=== PATIENT | male | born 1980 | race African-American/Black ===

== ENCOUNTER 2020-11-15 09:42 | Outpatient (CLI) | payer OTHER, SELFPAY ==
--- NOTE | 2020-11-15 | EST_ITS ---
Patient Info Name: Ross Shankar Age: 40 years : 1980 Gender: Male Ht: 76 in Wt: 250 lbs BSA: 2.49 m2 Exam Date: 11/15/2020 10:02 AM Exam Location: [facility] Stress Patient Status: Outpatient Admit Date: 11/15/2020 Staff Ordering Physician: Anselmo, Annetta Martin NP Attending Provider: Anselmo, Annetta Martin NP Exercise Technologist: Jana Rivas RDCS Exercise Physician: Edson Mckinnon DO Exam Type: CA stress test treadmill Study Info Indications R07.9 - Chest pain, unspecified A treadmill exercise stress test was performed. Summary 1. 1. Negative Kevin exercise stress test for ischemic ST changes by ECG criteria. 2. 2. Good functional capacity, achieving 12 METs of workload. 3. 3. Baseline hypertension with hypertensive response to exercise. 4. 4. Appropriate HR response to exercise. 5. 5. Appropriate HR recovery at 1 minute post exercise. 6. 6. No imaging with stress testing. 7. 7. Patient informed of the above results. Protocol: Kevin Stress ECG Details Stage: REST Duration (min): 5 min : 51 sec Speed (mph): 0.0 Grade (%): 0 HR (bpm): 89 SBP (mmHg): 146 DBP (mmHg): 96 METS: --- Stage: REST Duration (min): 9 min : 28 sec Speed (mph): 0.0 Grade (%): 0 HR (bpm): 86 SBP (mmHg): 146 DBP (mmHg): 96 METS: --- Stage: STAGE 1 Duration (min): 1 min : 0 sec Speed (mph): 1.7 Grade (%): 10 HR (bpm): 107 SBP (mmHg): 146 DBP (mmHg): 96 METS: --- Stage: STAGE 1 Duration (min): 2 min : 0 sec Speed (mph): 1.7 Grade (%): 10 HR (bpm): 111 SBP (mmHg): 146 DBP (mmHg): 96 METS: --- Stage: STAGE 1 Duration (min): 3 min : 0 sec Speed (mph): 1.7 Grade (%): 10 HR (bpm): 110 SBP (mmHg): 169 DBP (mmHg): 89 METS: --- Stage: STAGE 2 Duration (min): 1 min : 0 sec Speed (mph): 2.5 Grade (%): 12 HR (bpm): 116 SBP (mmHg): 169 DBP (mmHg): 89 METS: --- Stage: STAGE 2 Duration (min): 2 min : 0 sec Speed (mph): 2.5 Grade (%): 12 HR (bpm): 119 SBP (mmHg): 170 DBP (mmHg): 86 METS: --- Stage: STAGE 2 Duration (min): 3 min : 0 sec Speed (mph): 2.5 Grade (%): 12 HR (bpm): 122 SBP (mmHg): 170 DBP (mmHg): 86 METS: --- Stage: STAGE 3 Duration (min): 1 min : 0 sec Speed (mph): 3.4 Grade (%): 14 HR (bpm): 133 SBP (mmHg): 179 DBP (mmHg): 88 METS: --- Stage: STAGE 3 Duration (min): 2 min : 0 sec Speed (mph): 3.4 Grade (%): 14 HR (bpm): 136 SBP (mmHg): 179 DBP (mmHg): 88 METS: --- Stage: STAGE 3 Duration (min): 3 min : 0 sec Speed (mph): 3.4 Grade (%): 14 HR (bpm): 142 SBP (mmHg): 200 DBP (mmHg): 88 METS: --- Stage: STAGE 4 Duration (min): 1 min : 0 sec Speed (mph): 4.2 Grade (%): 16 HR (bpm): 155 SBP (mmHg): 200 DBP (mmHg): 88 METS: ---
== END 2020-11-15 09:43 | disposition home or self-care (01) ==
PROVIDERS: PCP Family Medicine; Visit Provider Nurse Practitioner
DX: R07.89 Other chest pain (principal)
CPT/HCPCS: 93017

== ENCOUNTER 2021-11-18 22:49 | Inpatient (IN) | payer OTHER, SELFPAY ==
--- NOTE | ~2021-11-18 | CT_ITS ---
EXAMINATION: CT abdomen pelvis w con DATE: 11/19/2021 04:03 INDICATION: Left upper quadrant abdominal pain. TECHNIQUE: Computed tomography (CT) of the abdomen and pelvis was performed with 100 mL Omnipaque 350 intravenous contrast. Automated exposure control and iterative reconstruction technique were employe d. The dose-length product was 609.76 mGy-cm. COMPARISON: CT abdomen and pelvis 04/14/2019 FINDINGS: The visualized portions of the lung bases are clear without pneumonia or pleural effusion. There is bilateral gynecomastia. The heart size is normal. No pericardial effusion. The liver demonst rates diffuse steatosis. The gallbladder and spleen are normal. There is hypoattenuation in the head of the pancreas. The pancreatic duct is dilated in the tail of the pancreas. There is fat stranding a round the pancreas. The left adrenal gland is normal. There is a 1.9 cm mass in right adrenal gland m easuring soft tissue attenuation without change, likely an adenoma. There are cysts in the kidneys me asuring up to 5 mm on the right. There is diffuse bladder wall thickening. There are no dilated loops of bowel. The appendix is normal. There is mild peripancreatic lymphadenopathy, likely reactive. The re is no free intraperitoneal fluid. There is a chronic left L5 pars defect. There is mild chronic an terior wedging of multiple thoracic vertebral bodies. There is mild thoracolumbar spondylosis. IMPRESSION: 1. 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 2. Chronic diffuse bladder wall thickening, likely benign. 3. Mild peripancreatic lymphadenopathy, likely reactive. 4. Diffuse hepatic steatosis. Reviewed, dictated and finalized at location A. WELL SERVICES SUPERVISOR
--- NOTE | ~2021-11-18 | XR_ITS ---
EXAMINATION: XR chest 1V portable DATE: 11/19/2021 02:38 INDICATION: Epigastric abdominal pain. Left chest pain. TECHNIQUE: A single frontal view of the chest was obtained. COMPARISON: Chest 2 views 01/27/2016, CT abdomen and pelvis 11/19/2021 FINDINGS: The chest demonstrates clear lungs without pneumonia, pleural effusion, or pneumothorax. Th e heart size is normal. IMPRESSION: 1. No acute cardiopulmonary disease. Reviewed, dictated and finalized at location A. ATION ANALYST
--- NOTE | ~2021-11-18 | US_ITS ---
EXAMINATION: US abdomen limited DATE: 11/19/2021 08:42 INDICATION: Pancreatitis. TECHNIQUE: Multiple grayscale and Doppler ultrasound images of the abdomen were obtained. COMPARISON: CT abdomen and pelvis 11/19/2021 FINDINGS: The visualized portion of the head of the pancreas is hypoechoic, consistent with acute green creatitis. There is diffuse hepatic steatosis. No liver surface nodularity. There is normal flow in m ain portal vein. The gallbladder is normal in size. No gallstones or gallbladder wall thickening. The re was no sonographic Matthews sign. The common duct is normal and measures 5 mm. IMPRESSION: 1. Acute pancreatitis. 2. Diffuse hepatic steatosis. Reviewed, dictated and finalized at location A. ON MIXER
[2021-11-18 22:57] VITALS: BP 148/88; PULSE 113; RESP 16; TEMP 36.8; O2SAT 100
[2021-11-19] VITALS (33 sets, daily range): BP systolic 100–150; BP diastolic 81–102; PULSE 87–115; RESP 12–22; TEMP 36.5–36.8; O2SAT 96–100; BMI 25.9
--- NOTE | 2021-11-19 02:20 | ECG_ITS ---
Measurements Intervals [place] Rate: 96 P: 29 HI: 139 QRS: 66 QRSD: 89 T: 8 QT: 343 QTc: 433 Interpretive Statements SINUS RHYTHM BORDERLINE ST-T WAVE ABNORMALITY- INFERIOR LEADS BORDERLINE ECG Electronically Signed On 11-19-2021 7:23:44 SHUTTLE FILLER by Edson Mckinnon D.O.
[2021-11-19] MEDS: MORPHINE SULFATE (*CRX) 4 MG/ML INJ IV PUSH ×5 (02:38→17:20)
[2021-11-19] MEDS: ONDANSETRON INJ 4 MG/2 ML VIAL IV PUSH ×5 (02:40→21:28)
[2021-11-19] MEDS: SODIUM CHLORIDE 0.9% IV 1,000 ML 999 ML IV CONT ×3 (02:40→05:44)
[2021-11-19 03:07] LABS: Magnesium 2.6 mg/dL (1.6-2.3)
[2021-11-19 03:09] LABS: Troponin I < 0.012 ng/mL (0.000-0.034)
[2021-11-19 03:13] LABS: Lactic Acid Reflex 1.2 mmol/L (0.7-2.1)
[2021-11-19 03:17] LABS: Basophils Percent Auto 0.3 % (0.2-1.2); Hemoglobin 14.7 g/dL (14.0-18.0); Immature Granulocyte Absolute 0.03 K/mm3 (0.00-0.031); Immature Granulocyte Percent A 0.3 % (0-0.5); Lymphocytes Absolute Auto 1.38 K/mm3 (0.9-3.2); Lymphocytes Percent Auto 13.4 % (18.3-44.2); Mean Corpuscular HGB Conc 34.2 g/dl (32-36); Mean Corpuscular Hemoglobin 29.1 pg (26-34); Mean Corpuscular Volume 85.1 fl (80-100); Mean Platelet Volume 10.4 fl (7.4-10.4); Monocytes Absolute Auto 0.6 K/mm3 (0.1-0.6); Monocytes Percent Auto 5.6 % (2.6-8.5); Neutrophils Absolute Auto 8.3 K/mm3 (1.3-6.7); Neutrophils Percent Auto 80.4 % (45.5-73.1); Platelet Count Result 318 k/mm3 (150-375); Red Blood Count 5.05 M/mm3 (4.6-6.20); Red Cell Distribution Width 13.2 % (11.5-14.5); White Blood Count 10.3 K/mm3 (4.5-10.0)
[2021-11-19 03:32] LABS: Alanine Aminotransferase 31 U/L (4-50); Albumin Level 5.4 g/dL (3.5-5.1); Alkaline Phosphatase 88 U/L (38-126); Anion Gap 19 mmol/L (8-16); Aspartate Amino Transferase 41 U/L (17-59); Bilirubin,Total 1.2 mg/dL (0.2-1.3); Blood Urea Nitrogen 11 mg/dL (9-20); Calcium 10.3 mg/dL (8.4-10.2); Carbon Dioxide 17 mmol/L (22-30); Chloride 96 mmol/L (98-107); Estimated CRCL calculation 147 ml/min; Estimated Glomerular Filt Rate > 60; Glucose 333 mg/dL (65-110); Potassium 5.1 mmol/L (3.4-5.0); Sodium 132 mmol/L (137-145)
[2021-11-19 03:36] LABS: Lipase 1096 U/L (23-300)
[2021-11-19 04:06] LABS: Glucose Point of Care 308 mg/dl (65-105)
[2021-11-19 04:08] LABS: Beta-Hydroxybutyrate/Acetoacetate 4.44 mmol/L (0.02-0.27)
--- NOTE | 2021-11-19 04:08 | ED.GENADULT ---
HPI - General Adult General Chief complaint: Abdominal Pain Stated complaint: Low back pain, L flank pain Time Seen by Provider: 11/19/21 02:17 History of Present Illness HPI narrative: Patient is a 41-year-old gentleman who presents the emergency department with chief complaint of abdominal pain. Patient states that he started having epigastric discomfort radiating to his back patient states it feels similar to whenever he had pancreatitis in the past. Patient states the pain is not improved by anything nor is it worsened by anything. The patient reports it also radiates up into his chest patient reports had some nausea and vomiting with this before in the past. Related Data Allergies Allergy/AdvReac Type Severity Reaction Status Date / Time Wasp Allergy Mild Swelling Uncoded 11/18/21 22:52 of Lip/Tongue/Throat Review of Systems Review of Systems: A 10 system review of systems was completed on the patient and is negative except for what is stated in the HPI. Nursing and ancillary documentation was reviewed. [facility] Past Medical History Medical History (Updated 11/19/21 @ 05:29 by Andrew Iqbal MD) Pancreatitis Family History Family History Other Diabetes mellitus Hypertension Social History Social History Alcohol intake: current Exam Narrative: GENERAL: Well-appearing, well-nourished, and in no acute distress. HEAD: Normocephalic, atraumatic. EYES: PERRLA and EOMI. ENT: Nares clear, no rhinorrhea or epistaxis. Mucous membranes moist. NECK: Supple. CHEST: Clear to auscultation. No respiratory distress. HEART: Regular rate and rhythm. No murmur heard. Normal peripheral pulses. ABDOMEN: Soft, tenderness to palpation in the epigastric region, nondistended, normal active bowel sounds. EXTREMITIES: Normal range of motion. No edema. SKIN: Warm, dry, no rash. NEURO: No focal deficits. Alert and oriented x3. PSYCH: Normal mood and affect. Course Vital Signs Vital signs: Vital Signs Temperature 36.8 C 11/18/21 22:57 Pulse Rate 113 H 11/18/21 22:57 Respiratory Rate 16 11/18/21 22:57 Blood Pressure 148/88 H 11/18/21 22:57 Pulse Oximetry 100 11/18/21 22:57 Temperature 36.8 C 11/18/21 22:57 Pulse Rate 102 H 11/19/21 04:59 Respiratory Rate 16 11/19/21 04:17 Blood Pressure 150/100 H 11/19/21 04:59 Pulse Oximetry 98 11/19/21 04:59 Medical Decision Making Vital Signs Vital Signs: Vital Signs Temperature 36.8 C 11/18/21 22:57 Pulse Rate 113 H 11/18/21 22:57 Respiratory Rate 16 11/18/21 22:57 Blood Pressure 148/88 H 11/18/21 22:57 Pulse Oximetry 100 11/18/21 22:57 Temperature 36.8 C 11/18/21 22:57 Pulse Rate 102 H 11/19/21 04:59 Respiratory Rate 16 11/19/21 04:17 Blood Pressure 150/100 H 11/19/21 04:59 Pulse Oximetry 98 11/19/21 04:59 Lab Data Result diagrams: 11/19/21 03:04 11/19/21 03:04 Labs: Lab Results 11/19/21 11/19/21 11/19/21 Range/Units 02:37 02:37 03:04 WBC 10.3 H (4.5-10.0) K/mm3 RBC 5.05 (4.6-6.20) M/mm3 Hgb 14.7 (14.0-18.0) g/dL Hct 43.0 (42.0-52.0) % MCV 85.1 (80-100) fl MCH 29.1 (26-34) pg MCHC 34.2 (32-36) g/dl RDW 13.2 (11.5-14.5) % Plt Count 318 (150-375) k/mm3 MPV 10.4 (7.4-10.4) fl Immature Gran % (Auto) 0.3 (0-0.5) % Neut % (Auto) 80.4 H (45.5-73.1) % Lymph % (Auto) 13.4 L (18.3-44.2) % [place] % (Auto) 5.6 (2.6-8.5) % Eos % (Auto) 0.0 (0-4.4) % Baso % (Auto) 0.3 (0.2-1.2) % Lymph # (Auto) 1.38 (0.9-3.2) K/mm3 [place] # (Auto) 0.6 (0.1-0.6) K/mm3 Eos # (Auto) 0.0 (0-0.3) K/mm3 Baso # (Auto) 0.0 (0.0-0.1) K/mm3 Abs Immat Gran (auto) 0.03 (0.00-0.031) K/mm3 Absolute Neuts (auto) 8.3 H (1.3-6.7) K/mm3 Absolute Nucleated RBC 0.0 (0
[2021-11-19 04:14] LABS: Alveolar/Arterial O2 Gradient 21.2 mmHg; Base Excess ABG -5.3 mEq/l (+/-2.0); Fractional Inspired Oxygen 21 %; Oxygen Content ABG 19.2 %vol (16.0-22.0); Oxygen Saturation ABG 95.6 % (95.0-100.0); Oxyhemoglobin 95.1 % THb (90.0-100.0); PCO2 ABG 38.2 mmHg (35.0-45.0); PO2 ABG 82.8 mmHg (80.0-100.0); PO2 FiO2 Ratio Arterial Blood 3.94 %; Total Hemoglobin 14.3 g/dL (12.0-18.0); pH ABG 7.336 (7.350-7.450)
[2021-11-19 04:16] LABS: Device ROOM AIR; Modified Allen's Test Pass; Site Drawn RIGHT RADIAL
[2021-11-19 04:54] LABS: Add Urine Microscopic? YES; Appearance Urine Clear (Clear); Bilirubin Urine Negative (Negative); Blood Urine Negative (Negative); Color Urine Yellow (Yellow); Glucose Urine UA 3+ mg/dL (Negative); Ketones Urine 2+ mg/dL (Negative); Leukocyte Esterase Ur Negative LEU/UL (Negative); Nitrate Urine Negative (Negative); Protein Urine 2+ mg/dL (Negative); RBC Urine 0-2 /hpf (0-2); Urobilinogen Urine Negative mg/dL (<2.0); WBC Urine 0-3 /hpf
[2021-11-19 04:56] LABS: Specific Grav Ur 1.036 (1.001-1.035)
--- NOTE | 2021-11-19 05:26 | PM.IMHP ---
H&P: HPI History of Present Illness Date/Time: 11/19/21 05:26 Chief Complaint: Abdominal pain Narrative: 41-year-old male with a past medical history of obesity and prior alcoholic pancreatitis who presented to the ER with abdominal pain and back pain. Patient reported that 3 days ago he began having epigastric abdominal pain that radiated to the back. The pain was similar to when he had pancreatitis a few years ago. However, this pain was also accompanied by developing new chest pain earlier today with chest pain in the left upper chest and left arm that radiated through to the back as well. He also noticed the pain was rating from his stomach up into his left chest. His abdominal pain is a 7/10 in intensity and is aching in nature. The pain is worse with palpation of the abdomen. He has some voluntary guarding. He did have a couple of alcoholic beverages earlier this week. He reported that his chest pain resolved after he received fluids in the ER. He did not notice is abdominal pain being worsened by anything but he has not been able to eat anything for the last 3 days due to a poor appetite. He reports that for the last year he has been unintentionally losing weight due to poor appetite, increased thirst and polyuria. He reports that his mouth is so dry any never feels like he can get enough fluid. He has also been having nocturia. He denies any dysuria or hematuria. He has been having frequency of bowel movements is but any time he eats for the last 6 months or so. Although he does admit that when he does not want to eat other foods he will eat a lot of fruits and some vegetables. He has had an unintentional weight loss of 30 lb. He did notice some shortness of breath yesterday before coming to the ER but this sensation has resolved. He denies any palpitations. He denies any fevers or chills. He refuses to receive a COVID vaccine as he does not trust the government. He did have COVID-09 July 2021. Review of Systems Review of Systems: 12 systems were reviewed with pertinent positives and negatives per HPI. Except as documented in the HPI, all other systems were reviewed and are negative. [facility] Past Medical History Medical History (Updated 11/19/21 @ 06:50 by Mila Cobian DO) Pancreatitis (~2018) Alcoholic pancreatitis Surgical History Surgical History (Updated 11/19/21 @ 06:42 by Mila Cobian DO) Status post open reduction with internal fixation of fracture (~2018) Left humerus fracture Family History Family History Other Diabetes mellitus Other Hypertension Social History Social History (Updated 11/19/21 @ 06:46 by Mila Cboian DO) Social History: He lives in [place] with his of 16 years. 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 They have 4 children who are healthy. He used to smoke cigarettes on occasion but never smoked on a regular basis. He does drink 2 or 3 mixed drinks 2 or 3 times a week. He denies any illicit substance use. Code status: Full code Surrogate decision maker: Alcohol intake: current Comments He reports that his parents are healthy. None of his first-degree relatives have diabetes. His 2 sisters and his half brother are healthy. Meds Home Medications and Allergies Allergies Allergy/AdvReac Type Severity Reaction Status Date / Time Wasp Allergy Mild Swelling Uncoded 11/18/21 22:52 of Lip/Tongue/Throat Vital Signs Vital Signs - 24 hr 11/18/21 22:57 11/19/21 03:14 11/19/21 04:17 Temperature 98.2 F Pulse Rate 113 H 96 104 H Respiratory Rate 16 14 16 Blood Pressure 148/88 H 128/87 138/90 Pulse Oximetry 100 97 100 11/19/21 04:59 Temperature Pulse Rate 102 H Respiratory Rate Blood Pressure 150/100 H Pulse Oximetry 98 Exam Narrative: PHYSICAL EXAM: WEIGHT 109 kg BMI 29.3 General: No acute distress, well-developed well-nourished HEENT: [place]
[2021-11-19 05:39] LABS: Glucose Point of Care 285 mg/dl (65-105)
[2021-11-19 06:18] LABS: SARS-CoV-2 RNA PCR Negative
[2021-11-19] MEDS: INSULIN HUMAN REGULAR (*BKC) 100 UNITS in SODIUM CHLORIDE 0.9% IV 99 ML IV CONT (06:23)
[2021-11-19 06:35] LABS: Anion Gap 15 mmol/L (8-16); Blood Urea Nitrogen 10 mg/dL (9-20); Calcium 9.6 mg/dL (8.4-10.2); Carbon Dioxide 18 mmol/L (22-30); Chloride 99 mmol/L (98-107); Estimated CRCL calculation 147 ml/min; Estimated Glomerular Filt Rate > 60; Glucose 285 mg/dL (65-110); Magnesium 2.4 mg/dL (1.6-2.3); Phosphorus 4.2 mg/dL (2.5-4.5); Potassium 5.4 mmol/L (3.4-5.0); Sodium 132 mmol/L (137-145); Triglycerides 243 mg/dL (<150)
[2021-11-19] MEDS: SODIUM CHLORIDE 0.9% IV 1,000 ML 150 ML IV CONT ×2 (06:45→21:16)
[2021-11-19 07:13] LABS: Hemoglobin A1C 13.5 % (<5.7)
[2021-11-19 07:22] LABS: Glucose Point of Care 279 mg/dl (65-105)
[2021-11-19 08:35] LABS: Glucose Point of Care 221 mg/dl (65-105)
--- NOTE | 2021-11-19 08:52 | PC.NURSE ---
Pharmacy contacted for [facility], D5 drip.
[2021-11-19] MEDS: KCL 20 MEQ/D5/0.45% SOD CHL 1,000 ML 150 ML IV CONT ×2 (09:16→16:06)
[2021-11-19] MEDS: ENOXAPARIN 40 MG/0.4 ML SYRINGE SUB-Q (09:17)
[2021-11-19 09:46] LABS: Glucose Point of Care 163 mg/dl (65-105)
[2021-11-19 10:40] LABS: Glucose Point of Care 185 mg/dl (65-105)
[2021-11-19 11:36] LABS: Glucose Point of Care 208 mg/dl (65-105)
[2021-11-19 11:57] LABS: Anion Gap 11 mmol/L (8-16); Blood Urea Nitrogen 9 mg/dL (9-20); Calcium 9.4 mg/dL (8.4-10.2); Carbon Dioxide 20 mmol/L (22-30); Chloride 103 mmol/L (98-107); Estimated CRCL calculation 169 ml/min; Estimated Glomerular Filt Rate > 60; Glucose 226 mg/dL (65-110); Sodium 134 mmol/L (137-145)
[2021-11-19 12:45] LABS: Glucose Point of Care 238 mg/dl (65-105)
[2021-11-19 13:59] LABS: Glucose Point of Care 188 mg/dl (65-105)
[2021-11-19 15:02] LABS: Glucose Point of Care 151 mg/dl (65-105)
[2021-11-19 15:43] LABS: Anion Gap 7 mmol/L (8-16); Blood Urea Nitrogen 9 mg/dL (9-20); Calcium 9.6 mg/dL (8.4-10.2); Carbon Dioxide 24 mmol/L (22-30); Chloride 104 mmol/L (98-107); Estimated CRCL calculation 169 ml/min; Estimated Glomerular Filt Rate > 60; Glucose 150 mg/dL (65-110); Potassium 3.9 mmol/L (3.4-5.0); Sodium 135 mmol/L (137-145)
[2021-11-19 16:01] LABS: Glucose Point of Care 135 mg/dl (65-105)
[2021-11-19] MEDS: INSULIN GLARGINE (*BKC) 100 UNITS/ML 20 UNITS SUB-Q (16:27)
[2021-11-19 17:22] LABS: Glucose Point of Care 197 mg/dl (65-105)
[2021-11-19 17:28] LABS: Anion Gap 10 mmol/L (8-16); Blood Urea Nitrogen 9 mg/dL (9-20); Calcium 9.5 mg/dL (8.4-10.2); Carbon Dioxide 21 mmol/L (22-30); Chloride 103 mmol/L (98-107); Estimated CRCL calculation 169 ml/min; Estimated Glomerular Filt Rate > 60; Glucose 197 mg/dL (65-110); Potassium 4.2 mmol/L (3.4-5.0); Sodium 134 mmol/L (137-145)
[2021-11-19 18:26] LABS: Glucose Point of Care 206 mg/dl (65-105)
[2021-11-19 19:47] LABS: Glucose Point of Care 313 mg/dl (65-105)
[2021-11-19] MEDS: traMADol HCL (*CRX) 25 MG TABLET PO (21:16)
[2021-11-19 21:27] LABS: Glucose Point of Care 291 mg/dl (65-105)
[2021-11-19 21:27] LABS: Anion Gap 8 mmol/L (8-16); Blood Urea Nitrogen 10 mg/dL (9-20); Calcium 9.3 mg/dL (8.4-10.2); Carbon Dioxide 23 mmol/L (22-30); Chloride 100 mmol/L (98-107); Estimated CRCL calculation 147 ml/min; Estimated Glomerular Filt Rate > 60; Glucose 296 mg/dL (65-110); Potassium 4.1 mmol/L (3.4-5.0); Sodium 131 mmol/L (137-145)
[2021-11-19 22:03] LABS: Lipase 617 U/L (23-300)
--- NOTE | 2021-11-19 22:41 | ADMGEN ---
This patient, Ross Shankar, was admitted to [facility] Surg Room 321-02. Patient/family oriented to hospital policies and general routines including ID bracelet, bed and alarms, visiting hours, pain management, procedures, bathroom and other care routines, personal items, smoking policy, room service/diet, and visiting hours. Information on how to activate the Rapid Response Team has been discussed. Patient/Family are encouraged to report perceived risks to care and to ask questions if they do not understand what they are told or what they should do.
[2021-11-20] MEDS: MORPHINE SULFATE (*CRX) 2 MG/ML INJ IV PUSH (02:04)
[2021-11-20 02:10] LABS: Glucose Point of Care 258 mg/dl (65-105)
[2021-11-20] MEDS: SODIUM CHLORIDE 0.9% IV 1,000 ML 150 ML IV CONT ×4 (03:23→23:57)
[2021-11-20 04:37] VITALS: O2SAT 98
[2021-11-20 05:49] VITALS: BP 118/75; PULSE 83; RESP 18; TEMP 36.7; O2SAT 98
[2021-11-20 08:00] VITALS: PULSE 90; RESP 18; O2SAT 100
[2021-11-20 08:03] LABS: Hematocrit 37.4 % (42.0-52.0); Hemoglobin 12.4 g/dL (14.0-18.0); Mean Corpuscular HGB Conc 33.2 g/dl (32-36); Mean Corpuscular Hemoglobin 28.5 pg (26-34); Mean Platelet Volume 9.4 fl (7.4-10.4); Platelet Count Result 245 k/mm3 (150-375); Red Blood Count 4.35 M/mm3 (4.6-6.20); White Blood Count 6.7 K/mm3 (4.5-10.0)
[2021-11-20 08:08] LABS: Alanine Aminotransferase 19 U/L (4-50); Albumin Level 4.1 g/dL (3.5-5.1); Alkaline Phosphatase 73 U/L (38-126); Anion Gap 6 mmol/L (8-16); Aspartate Amino Transferase 21 U/L (17-59); Bilirubin,Total 0.4 mg/dL (0.2-1.3); Blood Urea Nitrogen 9 mg/dL (9-20); Calcium 9.2 mg/dL (8.4-10.2); Carbon Dioxide 23 mmol/L (22-30); Chloride 102 mmol/L (98-107); Cholesterol 212 mg/dL (0-200); Estimated CRCL calculation 147 ml/min; Estimated Glomerular Filt Rate > 60; Glucose 227 mg/dL (65-110); HDL Direct 46 mg/dL; Potassium 3.7 mmol/L (3.4-5.0); Sodium 131 mmol/L (137-145); Triglycerides 169 mg/dL (<150)
[2021-11-20 08:18] LABS: LDL Cholesterol Direct 110 mg/dL
[2021-11-20 11:47] LABS: Glucose Point of Care 209 mg/dl (65-105)
--- NOTE | 2021-11-20 11:59 | PCCCNOTE ---
On 11/20/21, the student, [Ximena Marrero], provided care and completed [facility] hospital documentation on this patient. I have reviewed the student's documentation and agree with the findings.
--- NOTE | 2021-11-20 12:05 | PM.IMPN ---
Progress Note: A&P Assessment and Plan (1) DKA (diabetic ketoacidosis): Qualifiers: Diabetes mellitus complication detail: without coma Diabetes mellitus type: type 2 Qualified Code(s): E11.10 - Type 2 diabetes mellitus with ketoacidosis without coma Code(s): E11.10 - Type 2 diabetes mellitus with ketoacidosis without coma Status: Acute (2) Newly diagnosed diabetes: Onset Date: ~02/2021 Code(s): E11.9 - Type 2 diabetes mellitus without complications Status: Deleted (3) Acute pancreatitis: Qualifiers: Acute pancreatitis complication: no infection or necrosis Pancreatitis type: other Qualified Code(s): K85.80 - Other acute pancreatitis without necrosis or infection Code(s): K85.90 - Acute pancreatitis without necrosis or infection, unspecified Status: Acute Additional Plan Patient has DKA with newly diagnosed diabetes mellitus. It sounds the patient has been having symptoms of diabetes for about a year. DKA as exacerbated by the patient's acute pancreatitis which may be a little combination of hypertriglyceridemia and or recent alcohol use. Will check a right upper quadrant ultrasound to rule out gallbladder disease as a related cause although less likely with normal bilirubin and LFTs. Patient has been placed on IV fluid hydration per DKA protocol. Patient is on insulin drip. Will monitor hourly Accu-Cheks and serial BMPs for gap closure and normalization of serum bicarb. He has been admitted to the ICU with academic records specialist consult. He did received 3 L of normal saline in the ER. He will remain NPO except for ice chips. Morphine has been ordered as needed for pain. Hemoglobin A1c has been ordered. Will consult tobacco prevention health educator. He did have mild hyponatremia likely associated with dehydration and corrects to normal value with correlation with glucose. He also has some mild hyperkalemia again likely due to acidosis from DKA. Serial electrolyte panels have been ordered. Patient has been admitted as observation status. 11/20/21 lipase down to 600s and pt is pain free 04/16/19 HgbA1c 7.2 CLD advance as tolerated US negative for Gallstone TG 196 no family hx of pancreatitis medications reviewed, no presence of normal offending agents no trauma Pt does admit to EtOH consumption and this is likely the cause spoke katie Wood DM educator, recommends basal insulin and Jardiance (orders placed ) diabetic education drinking cessation counseling > 5 min anticipate dc home tomorrow on new dm regimen w PCP and restaurant hourly manager follow up Subjective Date/time seen: 11/20/21 12:05 pt doing ok hungry no abd pain Patient does admit to frequent use per review of medical chart pt had HbA1c of >7 in 2019, (DM is not a new dx for him) Exam Narrative: PHYSICAL EXAM: General: No acute distress, well-developed well-nourished HEENT: Mucous membranes moist, no oral pharyngeal erythema, no scleral icterus Respiratory: Clear to auscultation bilaterally, no increased work of breathing Cardiovascular: Sinus tachycardia, no murmur, 2+ bilateral radial pedal pulses Gastrointestinal: Soft, nontender , normoactive bowel sounds Skin: Non jaundice, no pallor Musculoskeletal: No foot wounds, no clubbing, no cyanosis Neurological: Alert and oriented, speech is clear, no facial asymmetry, no gross motor deficits Psychiatric: Appropriate mood and affect, pleasant and cooperative Objective Data Vital Signs Vital Signs: Vital Signs - 24 hr 11/19/21 13:46 11/19/21 14:00 11/19/21 14:15 Temperature Pulse Rate Respiratory Rate 19 15 16 Blood Pressure Pulse Oximetry 98 98 98 11/19/21 14:30 11/19/21 14:31 11/19/21 14:45 Temperature Pulse Rate Respiratory Rate 14 13 17 Blood Pressure 127/89 Pulse Oximetry 98 97 97 11/19/21 15:00 11/19/21 15:15 11/19/21 15:16 Temperature Pulse Rate Respiratory Rate 16 17 15 Blood Pressure 118/95 H Pulse Oxime
[2021-11-20] MEDS: lisinopriL 20 MG TABLET PO (12:09)
[2021-11-20] MEDS: ENOXAPARIN 40 MG/0.4 ML SYRINGE SUB-Q (12:09)
[2021-11-20] MEDS: hydroCHLOROthiazide 25 MG TABLET PO (12:09)
[2021-11-20] MEDS: SERTRALINE HCL 50 MG TABLET PO (12:09)
[2021-11-20] MEDS: INSULIN ASPART (*BKC) 100 UNITS/ML SUB-Q (12:10)
[2021-11-20 14:00] VITALS: BP 138/88; PULSE 90; RESP 18; TEMP 36.4; O2SAT 100
--- NOTE | 2021-11-20 14:46 | PCDIET ---
Consulted for DKA admission. Visited with pt today (11/20/21) to provide nutrition education for diabetes management. Pt was sleeping but woke up to answer my questions. Pt reports that he is not feeling up to nutrition education at this time but would like to receive education at a later time. RDN let pt know that we will attempt nutrition education again at a later time when he is feeling up to it. Will return tomorrow to attempt nutrition education.
[2021-11-20 16:01] LABS: Glucose Point of Care 194 mg/dl (65-105)
[2021-11-20] MEDS: INSULIN GLARGINE (*BKC) 100 UNITS/ML 15 UNITS SUB-Q (17:31)
[2021-11-20 20:51] LABS: Glucose Point of Care 212 mg/dl (65-105)
[2021-11-20 21:46] VITALS: BP 105/88; PULSE 88; RESP 18; TEMP 36.2; O2SAT 100
[2021-11-21] MEDS: MORPHINE SULFATE (*CRX) 2 MG/ML INJ IV PUSH ×2 (01:29→05:22)
[2021-11-21] MEDS: SODIUM CHLORIDE 0.9% IV 1,000 ML 150 ML IV CONT (05:16)
[2021-11-21 05:33] VITALS: BP 136/94; PULSE 76; RESP 18; TEMP 36.4; O2SAT 99
[2021-11-21 07:00] LABS: Basophils Percent Auto 0.7 % (0.2-1.2); Eosinophils Absolute Auto 0.1 K/mm3 (0-0.3); Eosinophils Percent Auto 2.1 % (0-4.4); Hematocrit 35.7 % (42.0-52.0); Hemoglobin 11.9 g/dL (14.0-18.0); Immature Granulocyte Absolute 0.01 K/mm3 (0.00-0.031); Immature Granulocyte Percent A 0.2 % (0-0.5); Lymphocytes Absolute Auto 2.24 K/mm3 (0.9-3.2); Lymphocytes Percent Auto 41.8 % (18.3-44.2); Mean Corpuscular HGB Conc 33.3 g/dl (32-36); Mean Corpuscular Hemoglobin 29.3 pg (26-34); Mean Corpuscular Volume 87.9 fl (80-100); Mean Platelet Volume 9.6 fl (7.4-10.4); Monocytes Absolute Auto 0.4 K/mm3 (0.1-0.6); Monocytes Percent Auto 8.2 % (2.6-8.5); Neutrophils Absolute Auto 2.5 K/mm3 (1.3-6.7); Platelet Count Result 251 k/mm3 (150-375); Red Blood Count 4.06 M/mm3 (4.6-6.20); Red Cell Distribution Width 12.6 % (11.5-14.5); White Blood Count 5.4 K/mm3 (4.5-10.0)
[2021-11-21 07:09] LABS: Anion Gap 7 mmol/L (8-16); Blood Urea Nitrogen 8 mg/dL (9-20); Calcium 9.1 mg/dL (8.4-10.2); Carbon Dioxide 25 mmol/L (22-30); Chloride 103 mmol/L (98-107); Estimated CRCL calculation 199 ml/min; Estimated Glomerular Filt Rate > 60; Glucose 134 mg/dL (65-110); Lipase 411 U/L (23-300); Magnesium 2.2 mg/dL (1.6-2.3); Potassium 3.1 mmol/L (3.4-5.0); Sodium 135 mmol/L (137-145)
[2021-11-21 07:54] LABS: Glucose Point of Care 135 mg/dl (65-105)
[2021-11-21] MEDS: hydroCHLOROthiazide 25 MG TABLET PO (09:36)
[2021-11-21] MEDS: lisinopriL 20 MG TABLET PO (09:36)
[2021-11-21] MEDS: SERTRALINE HCL 50 MG TABLET PO (09:36)
[2021-11-21] MEDS: ENOXAPARIN 40 MG/0.4 ML SYRINGE SUB-Q (09:36)
[2021-11-21] MEDS: INSULIN GLARGINE (*BKC) 100 UNITS/ML 15 UNITS SUB-Q (09:42)
[2021-11-21] MEDS: EMPAGLIFLOZIN 10 MG TABLET PO (09:42)
[2021-11-21 12:08] LABS: Glucose Point of Care 166 mg/dl (65-105)
--- NOTE | 2021-11-21 12:44 | PC.NURSE ---
Diabetic education nurse called and notified to see pt prior to discharge.
[2021-11-21 14:00] VITALS: BP 132/86; PULSE 74; RESP 18; TEMP 36.4; O2SAT 97
--- NOTE | 2021-11-21 16:00 | PM.DS ---
DS: Admitting Diagnosis Discharge Date 11/21/21 Admitting Diagnosis (1) DKA (diabetic ketoacidosis): Qualifiers: Diabetes mellitus type: type 2 Diabetes mellitus complication detail: without coma Qualified Code(s): E11.10 - Type 2 diabetes mellitus with ketoacidosis without coma Code(s): E11.10 - Type 2 diabetes mellitus with ketoacidosis without coma Status: Acute (2) Newly diagnosed diabetes: Code(s): E11.9 - Type 2 diabetes mellitus without complications Status: Acute (3) Acute pancreatitis: Qualifiers: Pancreatitis type: other Acute pancreatitis complication: no infection or necrosis Qualified Code(s): K85.80 - Other acute pancreatitis without necrosis or infection Code(s): K85.90 - Acute pancreatitis without necrosis or infection, unspecified Status: Acute Additional Plan Patient has DKA with newly diagnosed diabetes mellitus. It sounds the patient has been having symptoms of diabetes for about a year. DKA as exacerbated by the patient's acute pancreatitis which may be a little combination of hypertriglyceridemia and or recent alcohol use. Will check a right upper quadrant ultrasound to rule out gallbladder disease as a related cause although less likely with normal bilirubin and LFTs. Patient has been placed on IV fluid hydration per DKA protocol. Patient is on insulin drip. Will monitor hourly Accu-Cheks and serial BMPs for gap closure and normalization of serum bicarb. He has been admitted to the ICU with voltage inspector consult. He did received 3 L of normal saline in the ER. He will remain NPO except for ice chips. Morphine has been ordered as needed for pain. Hemoglobin A1c has been ordered. Will consult breastfeeding educator. He did have mild hyponatremia likely associated with dehydration and corrects to normal value with correlation with glucose. He also has some mild hyperkalemia again likely due to acidosis from DKA. Serial electrolyte panels have been ordered. DS: Discharge Diagnosis Discharge Diagnosis (1) DKA (diabetic ketoacidosis): Qualifiers: Diabetes mellitus type: type 2 Diabetes mellitus complication detail: without coma Qualified Code(s): E11.10 - Type 2 diabetes mellitus with ketoacidosis without coma Code(s): E11.10 - Type 2 diabetes mellitus with ketoacidosis without coma Status: Acute (2) Newly diagnosed diabetes: Onset Date: ~02/2021 Code(s): E11.9 - Type 2 diabetes mellitus without complications Status: Deleted (3) Acute pancreatitis: Qualifiers: Pancreatitis type: other Acute pancreatitis complication: no infection or necrosis Qualified Code(s): K85.80 - Other acute pancreatitis without necrosis or infection Code(s): K85.90 - Acute pancreatitis without necrosis or infection, unspecified Status: Acute DS: Summary Hospital Course Reason for hospitalization: Abdominal pain Hospital Course: Please refer to admission H&P. Briefly, this is a 41-year-old male with a past medical history of obesity and prior alcoholic pancreatitis who presented to the ER with abdominal pain and back pain. Patient reported that 3 days ago he began having epigastric abdominal pain that radiated to the back. The pain was similar to when he had pancreatitis a few years ago. However, this pain was also accompanied by developing new chest pain earlier today with chest pain in the left upper chest and left arm that radiated through to the back as well. He also noticed the pain was rating from his stomach up into his left chest. His abdominal pain is a 7/10 in intensity and is aching in nature. The pain is worse with palpation of the abdomen. He has some voluntary guarding. He did have a couple of alcoholic beverages earlier this week. He reported that his chest pain resolved after he received fluids in the ER. He did not notice is abdominal pain being worsened by anything but he has not been able to e
[2021-11-21 16:10] VITALS: BMI 25.9
== END 2021-11-21 16:25 | disposition home or self-care (01) | DRG 438 ==
LOC: ANHED 11-19 05:29 → ANHICU 11-19 05:52 → ANH3MEDSUR 11-19 18:26
PROVIDERS: Nurse Practitioner; Admitting Provider Internal Medicine; Emergency Provider Emergency Medicine; PCP Family Medicine; Visit Provider Hospitalist
DX: K85.20 Alcohol induced acute pancreatitis without necrosis or infection (principal); E11.10 Type 2 diabetes mellitus with ketoacidosis without coma; E87.1 Hypo-osmolality and hyponatremia; E86.0 Dehydration; E87.5 Hyperkalemia; Z20.822 Contact with and (suspected) exposure to COVID-19; Z72.89 Other problems related to lifestyle; Z86.16 Personal history of COVID-19
CPT/HCPCS: 36415; 36600; 71045; 74177; 76705; 80048; 80053; 80061; 81001; 82010; 82805; 82948; 83036; 83605; 83690; 83735; 84100; 84478; 84484; 85025; 85027; 93005; 96361; 96374; 99285; A9270; C9803; G0378; J1650; J1815; J2270; J2405; J3480; J7030; Q9967; U0003; U0005

== ENCOUNTER 2025-03-28 19:20 | Emergency (ER) | payer OTHER, SELFPAY ==
--- NOTE | ~2025-03-28 | CT_ITS ---
EXAMINATION: CT brain wo con DATE: 03/28/2025 19:52 INDICATION: fall . TECHNIQUE: Computed tomography (CT) of the head was performed without intravenous contrast. The mA wa s adjusted according to patient size. Iterative reconstruction technique was employed. The dose-lengt h product was 681.00 mGy-cm. COMPARISON: None. FINDINGS: No acute intracranial hemorrhage or extra-axial fluid collection. No hydrocephalus, mass, or herniation. No acute ischemic infarct. Unremarkable dural venous sinus attenuation. No acute osseous abnormality. The aerated spaces are clear. IMPRESSION: No acute intracranial process. Reviewed, dictated and finalized at location K.
--- NOTE | ~2025-03-28 | CT_ITS ---
EXAMINATION: CT cervical spine wo con DATE: 03/28/2025 19:52 INDICATION: fall TECHNIQUE: Computed tomography (CT) of the cervical spine was performed without intravenous contrast. Automated exposure control and iterative reconstruction technique were employed. The dose-length pro duct was 377.99 mGy-cm. COMPARISON: None. FINDINGS: Vertebral Body Alignment: Intact. Craniocervical and atlantoaxial alignment: No significant degenerative change. Alignment intact. Osseous structures/fracture: No evidence of a lytic or blastic process in the visualized spine. No e vidence of acute fracture. Cervical soft tissues: The paraspinal soft tissues planes are maintained. Degenerative changes: No significant degenerative changes. IMPRESSION: No acute fracture or traumatic malalignment in the cervical spine. Reviewed, dictated and finalized at location K.
--- OUTSIDE RECORDS SUMMARY | 2025-03-28 19:23 | XMS_ITS | Clinical Summary ---
Author Organization [facility] Address [address] [place] [address] Care Team Providers Care Human Performance Technologist Name Role Phone Anthony Orr MD Primary Care Provider Elio Painter MD Unavailable [phone] Allergies Active Allergy Reactions Criticality Noted Date Comments Wasp Venom Swelling Medium 01/20/2019 Medications lisinopril-hydr oCHLOROthiazide (PRINZIDE,ZESTO RETIC) 20-25 mg per tabletIndicatio ns:hypertension Take 1 tablet by mouth daily Active EPINEPHrine 0.3 mg/0.3 mL auto-injection syringe Inject 0.3 mL (0.3 mg total) into the muscle as instructed as needed 2 9 Active metFORMIN (GLUCOPHAGE) 1,000 mg tablet Take 1 tablet (1,000 mg total) by mouth 2 (two) times a day with meals Active sertraline (ZOLOFT) 50 mg tablet Take 1 tablet (50 mg total) by mouth daily Active LISINOPRIL ORAL Take by mouth Active amoxicillin 500 mg capsule TAKE 1 CAPSULE BY MOUTH THREE TIMES A DAY UNTIL FINISHED 5 Active Active Problems Problem Noted Date Diagnosed Date Alcohol-induced chronic pancreatitis 03/02/2025 Fatigue 03/02/2025 Screening for malignant neoplasm of colon 2024 Alcohol-induced acute pancreatitis 06/14/2023 Acute pancreatitis, unspecif ied complication status, unspecified pancreatitis type 05/03/2023 Hyponatremia 05/03/2023 Hypercalcemia 05/03/2023 Adrenal nodule 05/03/2023 Uncontrolled type 2 diabetes mellitus with hyper glycemia 05/03/2023 Closed nondisplaced transver se fracture of shaft of left humerus 01/20/2019 Overview (01/20/2019): Added automatically from request for surgery [id number] Resolved Problems Problem Noted Date Diagnosed Date Resolved Date Alcohol abuse 05/05/2023 03/02/2025 Encounters Date Type Department Care Team Description 03/02/2025 8:30 AM CDT Office Visit [facility] Gastroenterology [address] [place] [address] Medical Office Building [address], [address] [place] [address] Elio Painter MD Alcohol-induced chronic pancreatitis (HCC) (Primary Dx); Fatigue, unspecified type; Screening for malignant neoplasm of colon 03/02/2025 7:20 AM CDT - 03/02/2025 11:59 PM CDT Hospital Encounter [facility] [address] [place] [address] Elio Painter MD History of pancreatitis Discharge Disposition: Discharge to home or self care 01/19/2025 Telephone [facility] Gastroenterology [facility] Advanced Medicine [facility] [place] [address] [place] [address] Alex Costello 01/19/2025 Orders Only [facility] Gastroenterology [address] [place] [address] [place] [address] Elio Painter MD History of pancreatitis (Primary Dx) 01/19/2025 Telephone [facility] Gastroenterology [address] [facility] Medicine [facility] [place] [address] [place] [address] Alex Costello 01/19/2025 Telephone [facility] Gastroenterology [address] [facility] Medicine [facility] [place] [address] [place] [address] Alex Costello imaging due from Last 3 Months Immunizations Immunization Administration Dates Next Due Tdap 05/29/2021 Surgical History Surgery Date Site/Laterality Comments WISDOM TOOTH EXTRACTION 10/21/1996 - 10/20/1997 Medical History Medical History Date Comments Hypertension Anxiety Fracture right foot -occa sional swelling since it healed Depression Social History Tobacco Use Types Packs/Day Years Used Date Smoking Tobacco: Light Smoker Passive Smoke Exposure: Past Smokeless Tobacco: Former Tobacco Cessation:Ready to Q uit: Not Asked; Counseling Given: Not Answered AUDIT-C Answer Date Recorded Q1: How often do you have a drink containing alc ohol? Never 03/02/2025 Average Number of Drinks Not on file 025 Frequency of Binge Drinking Not on file 02/18 Personal Safety Answer Date Recorded Have you ever been in or are you currently in a harmful physical or emotional relationship or is someone making you feel afraid or unsafe? 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 Not on file Not on file Not on fi le Obstetrics History Last Filed Vital Signs Vital Sign Reading Time Taken Comments Blood Pressure 118/76 03/02/2025 8:02 AM CDT Pulse 76 03/02/2025 8:02 AM CDT Temperature 36.8 C (98.3 F) 05/10/2023 8:06 AM CDT Respiratory Rate 16 05/10/2023 8:06 AM CDT Oxygen Saturation 98% 05/10/2023 4:00 PM CDT Inhaled Oxygen Concentration - - Weight 82.6 kg (182 lb 3.2 oz) 03/02/2025 8:02 A M CDT Height 193 cm (6' 4) 03/02/2025 8:02 AM CDT Body Mass Index 22.18 03/02/2025 8:02 AM CDT Plan of Treatment Health Maintenance Due Date Last Done Comments Albumin Creatinine Ratio, Urine 1980 Depression Screening 1980 Hepatitis C Screening 1980 Prostate Cancer Screening-PSA 1980 Dilated Eye Exam 1980 Foot Exam 1980 Varicella Vaccines (1 of 2 - 13+ 2-dose series) 1993 Hepatitis B Screening 1998 Regular Well Visit/Exam 18-64 1998 Pneumococcal vaccine <65 (1 of 2 - PCV) 1999 Hemoglobin A1C 11/03/2023 05/03/2023 Lipid Panel 05/03/2024 05/03/2023 eGFR 05/10/2024 05/10/2023, 04/20, 05/03/2023, Additional history exists Influenza Vaccine (Season Ended) 2025 DTaP/Tdap/Td Vaccine (2 - Td or Tdap) 05/29/2031 05/29/2021 HPV Vaccines Aged Out No longer eligi ble based on patient's age to complete this topic Medical Devices Implanted Type Area Buggy Ladle Tender Device Identifier Shelf Expiration Date Model / Serial / Lot Synthes 204.822 3.5mm 6mm 22mm 2.5mm Self Tap Small Hexagonal Socket Low Profile - S.0 - [id number] Implanted:Qty: 2 on 01/21/2019 by Jason Babb MD at [facility] Left: Humerus Synthes I 204.822 / .0 / 0 Synthes 212.116 3.5mm 2.9mm 38mm Self Tap Lock Stardrive Conical Head T15 Full - S.0 - [id number] Implanted:Qty: 1 on 01/21/2019 by Jason Babb MD at [facility] Left: Humerus Synthes I 212.116 / .0 / 0 Synthes 241.34 12mm [id number] .[id number] 4 Hole Collar 1/3 Tubular Plate Bone Stainless - S.0 - [id number] Implanted:Qty: 1 on 01/21/2019 by Jason Babb MD at [facility] Left: Humerus Synthes I 241.34 / .0 / 0 Synthes 204.824 3.5mm 6mm 24mm 2.5mm Self Tap Small Hexagonal Socket Low Profile - S.0 - [id number] Implanted:Qty: 1 on 01/21/2019 by Jason Babb MD at [facility] Left: Humerus Synthes I 204.824 / .0 / 0 Synthes 204.826 3.5mm 6mm 26mm 2.5mm Self Tap Small Hexagonal Socket Low Profile - S.0 - [id number] Implanted:Qty: 1 on 01/21/2019 by Jason Babb MD at [facility] Left: Humerus Synthes I 204.826 / .0 / 0 Synthes 223.661 Lcp Combi [id number] 16 Hole Limit Contact Taper End Plate Bone - S.0 - [id number] Implanted:Qty: 1 on 01/21/2019 by Jason Babb MD at [facility] Left: Humerus Synthes I 223.661 / .0 / 0 Synthes 204.828 3.5mm 6mm 28mm 2.5mm Self Tap Small Hexagonal Socket Low Profile - S.0 - [id number] Implanted:Qty: 2 on 01/21/2019 by Jason Babb MD at [facility] Left: Humerus Synthes I 204.828 / .0 / 0 Synthes 212.109 3.5mm 2.9mm 26mm Self Tap Lock Stardrive Conical Head T15 Full - S.0 - [id number] Implanted:Qty: 1 on 01/21/2019 by Jason Babb MD at [facility] Left: Humerus Synthes I 212.109 / .0 / 0 Synthes 212.110 3.5mm 2.9mm 28mm Self Tap Lock Stardrive Conical Head T15 Full - S.0 - [id number] Implanted:Qty: 1 on 01/21/2019 by Jason Babb MD at [facility] Left: Humerus Synthes I 212.110 / .0 / 0 Synthes 212.111 3.5mm 2.9mm 30mm Self Tap Lock Stardrive Conical Head T15 Full - S.0 - [id number] Implanted:Qty: 1 on 01/21/2019 by Jason Babb MD at [facility] Left: Humerus Synthes I 212.111 / .0 / 0 Procedures Procedure Name Priority Date/Time Associated Diagnosis Comments CT ABDOMEN PELVIS W WO CONTRAST Schedule Routine, Read Routine (OP Routine) 03/02/2025 7:33 AM CDT History of pancreatitis POC ISTAT Routine 03/02/2025 7:26 AM CDT EGFR STAT 05/10/2023 10:03 AM CDT HEMOGLOBIN A1C Routine 05/03/2023 5:41 AM CDT LIPID PANEL STAT 05/03/2023 12:47 AM CDT from Last 3 Months or Most Recently Relevant to Health Maintenance Results * CT Abdomen Pelvis W WO Contrast (03/02/2025 7:33 AM CDT) Anatomical Region Laterality Modality Body N/A Computed Tomogra phy 03/02/2025 8:44 AM CDT Impressions 03/02/2025 8:50 AM CDT Unchanged findings of chronic calcific pancreatitis without mass or fluid collection. Dictated by: Walter Hollis M.D. The radiology attending physician has personally reviewed this study, and had reviewed and/or edited this written report and agrees with it. Electronically signed by: Jaron Johnson M.D. Narrative 03/02/2025 8:50 AM CDT EXAMINATION: Computed tomography of the abdomen and pelvis with and without intravenous contrast HISTORY: Cystic lesion of the pancreas, chronic pancreatitis TECHNIQUE: Transaxial computed tomographic images of the abdomen and pelvis were obtained with and without intravenous contrast according to the standard protocol after the uneventful administration of 100 mL Opti-Ray 350 intravenous contrast. COMPARISON: 02/22/2024, 05/04/2023. FINDINGS: Imaged lung bases are clear. Heart size normal. No pericardial effusion. Liver, spleen, left adrenal gland are normal. Unchanged 1.3 cm right nodule stable since 2021, likely an adrenal adenoma. Kidneys enhance symmetrically. There is no obstructing renal stone. No hydroureteronephrosis. Marked bladder wall thickening, unchanged from prior examination likely secondary to chronic outlet obstruction. Bladder is mildly distended. No bowel obstruction. Appendix is normal. Mesenteric vessels are patent. Multiple calcifications throughout the pancreatic head, body and tail. No worsening ductal dilatation. Cystic mass in the pancreatic head seen on 05/07/2023 MRI is no longer present with only hypoattenuation of the pancreatic head, possibly fibrosis. No solid masses or drainable fluid collections. No new or worsening lymphadenopathy. No suspicious osseous lesions. Mild wedging partially imaged and thoracic vertebral bodies, chronic. Procedure Note Jaron Johnson MD - 03/02/2025 EXAMINATION: Computed tomography of the abdomen and pelvis with and without intravenous contrast HISTORY: Cystic lesion of the pancreas, chronic pancreatitis TECHNIQUE: Transaxial computed tomographic images of the abdomen and pelvis were obtained with and without intravenous contrast according to the standard protocol after the uneventful administration of 100 mL Opti-Ray 350 intravenous contrast. COMPARISON: 02/22/2024, 05/04/2023. FINDINGS: Imaged lung bases are clear. Heart size normal. No pericardial effusion. Liver, spleen, left adrenal gland are normal. Unchanged 1.3 cm right nodule stable since 2021, likely an adrenal adenoma. Kidneys enhance symmetrically. There is no obstructing renal stone. No hydroureteronephrosis. Marked bladder wall thickening, unchanged from prior examination likely secondary to chronic outlet obstruction. Bladder is mildly distended. No bowel obstruction. Appendix is normal. Mesenteric vessels are patent. Multiple calcifications throughout the pancreatic head, body and tail. No worsening ductal dilatation. Cystic mass in the pancreatic head seen on 05/07/2023 MRI is no longer present with only hypoattenuation of the pancreatic head, possibly fibrosis. No solid masses or drainable fluid collections. No new or worsening lymphadenopathy. No suspicious osseous lesions. Mild wedging partially imaged and thoracic vertebral bodies, chronic. IMPRESSION: Unchanged findings of chronic calcific pancreatitis without mass or fluid collection. Dictated by: Walter Hollis M.D. The radiology attending physician has personally reviewed this study, and had reviewed and/or edited this written report and agrees with it. Electronically signed by: Jaron Johnson M.D. Elio Painter MD IMG CT PROCEDURES Final Re sult * POC ISTAT (03/02/2025 7:26 AM CDT) Creatinine, POC, bld 0.9 0.6 - 1.3 mg/dL POC Device Number [id number] ASNG PINEDA POC Performer [id number] SANG PINEDA Blood 03/02/2025 7:26 AM CDT 03/02/2025 7:26 AM CDT Elio Painter MD LAB BLOOD ORDERABLES Final Result [facility] [address] [facility]. Department [place] [address] * eGFR (05/10/2023 10:03 AM CDT) eGFR 116 mL/min/1. 73 m2 [facility] Comment: Interpretive Data Reference Interval Normal >/= 90 mL/min/1.73m2 Mildly decreased* 60 - 89 mL/min/1.73m2 Mildly to moderately decreased 45 - 59 mL/min/1.73m2 Moderately to severely decreased 30 - 44 mL/min/1.73m2 Severely decreased 15 - 29 mL/min/1.73m2 Kidney Failure < 15 mL/min/1.73m2 *Relative to young adult level Estimated glomerular filtration rate is determined by the 2020 CKD-EPI equation recommended by the National Kidney Foundation (A Unifying Approach to GFR Estimation: Recommendations of the NKF-ASK Task Force on Reassessing the Inclusion of Race in Diagnosing Kidney Disease, JASN 2020). The CKD-EPI equation should not be used for patients with unstable renal function and has not been validated in children and those over 70. Current interpretive data was last reviewed 2021. Blood 05/10/2023 10:0 3 AM CDT 05/10/2023 10:07 AM CDT us Gorge Lewis DO LAB BLOOD ORDERABLES Final R esult [facility] [address] Department [place] [address] * (ABNORMAL) Hemoglobin A1c (05/03/2023 5:41 AM CDT) Hgb A1C 11.6(H) 4.0 - 5.6 % [facility] Estimated Average Glucose 286 mg/dL [facility] Comment: The ADA recommends reporting an estimated Average Glucose (eAG) with all Hemoglobin A1c results using the equation derived from a study of 507 normal and diabetic adults. Minority populations were underrepresented and children were not included. (Diabetes Care 31:1040-3927, 2008). The eAG is not equivalent to a fasting glucose. Blood 05/03/2023 5:41 AM CDT 05/03/2023 6:05 AM CDT us Steve Christian MD LAB BLOOD ORDERABLES Final Result [facility] [address] Department [place] [address] * (ABNORMAL) Lipid panel (05/03/2023 12:47 AM CDT) Cholesterol 207(H) 30 - 199 mg/dL [facility] Comment: Interpretive Data Ages < or = 19 years Acceptable: <170 mg/dL Borderline high: 170-199 mg/dL High: >or= 200 mg/dL Ages > or = 20 years Desirable: <200 mg/dL Borderline high: 200-239 mg/dL High: >or= 240 mg/dL Literature References: 1. Expert Panel on Integrated Guidelines for Cardiovascular Health and Risk Reduction in Children and Adolescents. Pediatrics 2011;128:S213 2. NCEP Expert Panel. Circulation 2004;110:227 Current Interpretive Data was last revised on 2018. Triglycerides 178(H) <=149 mg/dL [facility] Comment: Interpretive Data Ages < or = 9 years Acceptable: <75 mg/dL Borderline high: 75-99 mg/dL High: >or= 100 mg/dL Ages 10 to 20 years Acceptable: <90 mg/dL Borderline high: 90-129 mg/dL High: >or= 130 mg/dL Ages > or = 20 years Desirable: <150 mg/dL Borderline high: 150-199 mg/dL High: 200-499 mg/dL Very high: >or= 499 mg/dL Literature References: 1. Expert Panel on Integrated Guidelines for Cardiovascular Health and Risk Reduction in Children and Adolescents. Pediatrics 2011;128:S213 2. NCEP Expert Panel. Circulation 2004;110:227 Current Interpretive Data was last revised on 2018. HDL 62 >=40 mg/dL [facility] Comment: Interpretive Data Ages < or = 19 years Acceptable: >45 mg/dL Borderline low: 40-45 mg/dL Low: <40 mg/dL Ages > or = 20 years Desirable: >or= 60 mg/dL Low: <40 mg/dL Literature References: 1. Expert Panel on Integrated Guidelines for Cardiovascular Health and Risk Reduction in Children and Adolescents. Pediatrics 2011;128:S213 2. NCEP Expert Panel. Circulation 2004;110:227 Current Interpretive Data was last revised on 2018. LDL, calculated 109 <=129 mg/dL [facility] Comment: Interpretive Data Ages < or = 19 years Acceptable: <110 mg/dL Borderline high: 110-129 mg/dL High: >or= 130 mg/dL Ages > or = 20 years Optimal: <100 mg/dL Near optimal: 100-129 mg/dL Borderline high: 130-159 mg/dL High: >160 mg/dL Literature References: 1. Expert Panel on Integrated Guidelines for Cardiovascular Health and Risk Reduction in Children and Adolescents. Pediatrics 2011;128:S213 2. NCEP Expert Panel. Circulation 2004;110:227 Current Interpretive Data was last revised on 2018. Non-HDL Cholesterol 145 mg/dL [facility] Comment: Interpretive Data Ages < or = 19 years Acceptable: <120 mg/dL Borderline high: 120-144 mg/dL High: >145 mg/dL Ages > or = 20 years When triglycerides are >200 mg/dL, Non-HDL cholesterol is a secondary target of therapy with treatment goals that are 30 mg/dL greater than the LDL cholesterol target. Literature References: 1. Expert Panel on Integrated Guidelines for Cardiovascular Health and Risk Reduction in Children and Adolescents. Pediatrics 2011;128:S213 2. NCEP Expert Panel. Circulation 2004;110:227 Current Interpretive Data was last revised on 2018. Chol/HDL ratio 3 [facility] Blood 05/03/2023 12:4 7 AM CDT 05/03/2023 12:55 AM CDT us Steve Christian MD LAB BLOOD ORDERABLES Final Result [facility] [address] Department [place] [address] from Last 3 Months or Most Recently Relevant to Health Maintenance Insurance [facility] WORKERS COMPENSATION GENERIC WORKERS COMPENSATION GENERIC Advance Directives For more information, please contact: [phone] * Full Code (Latest Code Status on File) Date Activated Date Inactivated Comments 05/03/2023 5:52 AM 05/05/2023 3:50 PM * Full Code Date Activated Date Inactivated Comments 01/20/2019 9:59 PM 01/22/2019 9:22 PM Care Teams Human Performance Technologist Relationship Specialty Start Date End Date Anthony Orr MD PCP - General 01/20/19 Elio Painter MD [address] [place] [address] Consulting Physician Gastroenterology 05/05/23
--- OUTSIDE RECORDS SUMMARY | 2025-03-28 19:23 | XMS_ITS | Referral Summary ---
Author Organization [facility] Address [address] [place] [address] Care Team Providers Care Bumper And Painter Name Role Phone Anthony Orr MD Primary Care Provider Elio Painter MD Unavailable [phone] Encounters Date Type Department Care Team Description 03/02/2025 8:30 AM CDT Office Visit [facility] Gastroenterology [address] [place] [address] Medical Office Building [address], [address] [place] [address] Elio Painter MD Alcohol-induced chronic pancreatitis (HCC) (Primary Dx); Fatigue, unspecified type; Screening for malignant neoplasm of colon 03/02/2025 7:20 AM CDT - 03/02/2025 11:59 PM CDT Hospital Encounter [facility] Imaging [address] [place] [address] Elio Painter MD History of pancreatitis Discharge Disposition: Discharge to home or self care 01/19/2025 Telephone [facility] Gastroenterology [facility] Medicine [address] [place] [address] [place] [address] Alex Costello 01/19/2025 Orders Only [facility] Gastroenterology [address] [facility] Medicine [address]th [place] [address] [place] [address] Elio Painter MD History of pancreatitis (Primary Dx) 01/19/2025 Telephone [facility] Gastroenterology [address] [facility] Medicine [address]th [place] [address] [place] [address] Alex Costello 01/19/2025 Telephone [facility] Gastroenterology [address] [facility] 12th [place] [address] [place] [address] Alex Costello imaging due from Last 3 Months Allergies Active Allergy Reactions Criticality Noted Date [...] MOUTH THREE TIMES A DAY UNTIL FINISHED Active Active Problems Problem Noted Date Diagnosed [...] (01/20/2019): Added automatically from request for surgery [id number] Resolved Problems Problem Noted Date Diagnosed Date Resolved Date Alcohol abuse 05/05/2023 03/02/2025 Immunizations Immunization Administration Dates Next Due Tdap 05/29/2021 Social History Tobacco Use Types Packs/Day Years [...] on file Legal Sex Male 12:18 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 Gender Identity Not on file Sexual Orientation Not on file 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 Not on file Not on fi le Last Filed Vital Signs Vital Sign Reading [...] 03/02/2025 8:02 AM CDT Plan of Treatment Not on file Medical Devices Implanted Type Area Recovery Manager Device Identifier Shelf Expiration Date Model / Serial / Lot Synthes 204.822 3.5mm 6mm 22mm 2.5mm Self Tap Small Hexagonal Socket Low Profile - S.0 - [id number] Implanted:Qty: 2 on 01/21/2019 by Jason Babb MD at [facility] Left: Humerus Synthes I 204.822 / .0 / 0 Synthes 212.116 3.5mm 2.9mm 38mm Self Tap Lock Stardrive Conical Head T15 Full - S.0 - [id number] Implanted:Qty: 1 on 01/21/2019 by Jason Babb MD at [facility] Left: Humerus Synthes I 212.116 / .0 / 0 Synthes 241.34 12mm [id number] .5mm 4 Hole Collar 1/3 Tubular Plate Bone Stainless - S.0 - [id number] Implanted:Qty: 1 on 01/21/2019 by Jason Babb MD at [facility] Left: Humerus Synthes I 241.34 / .0 / 0 Synthes 204.824 3.5mm 6mm 24mm 2.5mm Self Tap Small Hexagonal Socket Low Profile - S.0 - [id number] Implanted:Qty: 1 on 01/21/2019 by Jason Babb MD at [facility] Left: Humerus Synthes I 204.824 / .0 / 0 Synthes 204.826 3.5mm 6mm 26mm 2.5mm Self Tap Small Hexagonal Socket Low Profile - S.0 - [id number] Implanted:Qty: 1 on 01/21/2019 by Jason Babb MD at [facility] Left: Humerus Synthes I 204.826 / .0 / 0 Synthes 223.661 Lcp Combi [id number] 16 Hole Limit Contact Taper End Plate Bone - S.0 - [id number] Implanted:Qty: 1 on 01/21/2019 by Jason Babb MD at [facility] Left: Humerus Synthes I 223.661 / .0 / 0 Synthes 204.828 3.5mm 6mm 28mm 2.5mm Self Tap Small Hexagonal Socket Low Profile - S.0 - [id number] Implanted:Qty: 2 on 01/21/2019 by Jason Babb MD at [facility] Left: Humerus Synthes I 204.828 / .0 / 0 Synthes 212.109 3.5mm 2.9mm 26mm Self Tap Lock Stardrive Conical Head T15 Full - S.0 - [id number] Implanted:Qty: 1 on 01/21/2019 by Jason Babb MD at [facility] Left: Humerus Synthes I 212.109 / .0 / 0 Synthes 212.110 3.5mm 2.9mm 28mm Self Tap Lock Stardrive Conical Head T15 Full - S.0 - [id number] Implanted:Qty: 1 on 01/21/2019 by Jason Babb MD at [facility] Left: Humerus Synthes I 212.110 / .0 / 0 Synthes 212.111 3.5mm 2.9mm 30mm Self Tap Lock Stardrive Conical Head T15 Full - S.0 - [id number] Implanted:Qty: 1 on 01/21/2019 by Jason Babb MD at [facility] Left: Humerus Synthes I 212.111 / [...] mass or fluid collection. Dictated by: Walter Manna, M.D. The radiology attending physician has personally reviewed this study, and had reviewed and/or edited this written report and agrees with it. Electronically signed by: Jaron Johnson M.D. Elio Painter MD IMG CT PROCEDURES Final Re sult * POC ISTAT (03/02/2025 7:26 AM CDT) Creatinine, POC, bld 0.9 0.6 - 1.3 mg/dL POC Device Number [id number] [facility] POC Performer [id number] SANG PINEDAVA [facility] Blood 03/02/2025 7:26 AM CDT 03/02/2025 7:26 AM CDT Elio Painter MD LAB BLOOD ORDERABLES Final Result [facility] [address] [facility]. [place] [address] * eGFR (05/10/2023 10:03 AM CDT) eGFR 116 mL/min/1. 73 m2 [facility] Comment: Interpretive Data Reference Interval Normal >/= [...] DO LAB BLOOD ORDERABLES Final R esult Performing Organization Address [facility] Co de Phone Number [facility] [address] [place] [address] * (ABNORMAL) Hemoglobin A1c (05/03/2023 5:41 AM CDT) Hgb A1C 11.6(H) 4.0 - 5.6 % [facility] Estimated Average Glucose 286 mg/dL [facility] Comment: The ADA recommends reporting an estimated Average Glucose (eAG) with all Hemoglobin A1c results using the equation derived from a study of 507 normal and diabetic adults. Minority populations were underrepresented and children were not included. (Diabetes Care 31:9286-7093, 2008). The eAG is not equivalent to a fasting glucose. Blood 05/03/2023 5:41 AM CDT 05/03/2023 6:05 AM CDT Steve Christian MD LAB BLOOD ORDERABLES Final Result Performing Organization Address [facility] Co de Phone Number [facility] [address] [place] [address] * (ABNORMAL) Lipid panel (05/03/2023 12:47 AM CDT) Cholesterol 207(H) 30 - 199 mg/dL [facility] Comment: Interpretive Data Ages < or = [...] revised on 2018. Triglycerides 178(H) <=149 mg/dL [facility] Comment: Interpretive Data Ages < or = [...] revised on 2018. HDL 62 >=40 mg/dL [facility] Comment: Interpretive Data Ages < or = [...] on 2018. LDL, calculated 109 <=129 mg/dL [facility] Comment: Interpretive Data Ages < or = [...] revised on 2018. Non-HDL Cholesterol 145 mg/dL [facility] Comment: Interpretive Data Ages < or = [...] last revised on 2018. Chol/HDL ratio 3 [facility] Blood 05/03/2023 12:4 7 AM CDT 05/03/2023 12:55 AM CDT us Steve Christian MD LAB BLOOD ORDERABLES Final Result [facility] [address] Department [place] [address] from Last 3 Months or Most Recently Relevant to Health Maintenance Insurance [facility] WORKERS COMPENSATION GENERIC WORKERS COMPENSATION GENERIC Advance Directives For more information, please contact: [phone] * Full Code (Latest Code Status on File) Date Activated Date Inactivated Comments 05/03/2023 5:52 AM 05/05/2023 3:50 PM * Full Code Date Activated Date Inactivated Comments 01/20/2019 9:59 PM 01/22/2019 9:22 PM Care Teams Bumper And Painter Relationship Specialty Start Date End Date Anthony Orr MD PCP - General 01/20/19 Elio Painter MD [address] [place] [address] Consulting Physician Gastroenterology 05/05/23
--- OUTSIDE RECORDS SUMMARY | 2025-03-28 19:23 | XMS_ITS | Clinical Summary ---
Author Organization [facility] Address [address] [place] [address] Phone Care Team Providers Care Engineering Specialist Name Role Phone Anthony Orr MD Primary Care Provider Allergies No known active allergies Medications promethazine (PHENERGAN) 25 MG Tablet Take 1 Tab by mouth every 6 hours as needed for Nausea - 1st line. 20 Tab 05/14/2020 Active HYDROcodone-tg taminophen (NORCO) 5-325 MG Tablet Take 1-2 Tabs by mouth every 4 hours as needed for Moderate or more severe pain. 20 Tab 05/14/2020 Active famotidine (PEPCID) 20 MG Tablet Take 1 Tab by mouth 2 times daily. 30 Tab 05/14/2020 Active metFORMIN (GLUCOPHAGE) 500 MG Tablet Take 1 Tab by mouth 2 times daily (with meals). 60 Tab 05/14/2020 Active Social History Tobacco Use Types Packs/Day Years Used Date Smoking Tobacco: Some Days Smokeless Tobacco: Never Alcohol Use Standard Drinks/Week Comments Never 0 (1 standard drink = 0.6 oz pur e alcohol) AUDIT-C Answer Date Recorded Q1: How often do you have a drink containing alc ohol? Never 05/14/2020 Average Number of Drinks Not on file 020 Frequency of Binge Drinking Not on file 04/21 Sex and Gender Information Value Date Recorded Sex Assigned at Not on file Legal Sex Male 1:56 PM CDT Gender Identity Not on file Sexual Orientation Not on file Last Filed Vital Signs Vital Sign Reading Time Taken Comments Blood Pressure 141/93 05/14/2020 6:00 PM CDT Pulse 80 05/14/2020 6:00 PM CDT Temperature 36.3 C (97.4 F) 05/14/2020 2:27 PM CDT Respiratory Rate 18 05/14/2020 2:27 PM CDT Oxygen Saturation 98% 05/14/2020 6:00 PM CDT Inhaled Oxygen Concentration - - Weight 118.8 kg (262 lb) 05/14/2020 2:30 PM CDT Height 193 cm (6' 4) 05/14/2020 2:30 PM CDT Body Mass Index 31.89 05/14/2020 2:30 PM CDT Plan of Treatment Health Maintenance Due Date Last Done Comments Hepatitis C Virus (HCV) Screening 1980 TdaP Immunization 1980 Hepatitis B Immunization (1 of 3 - 19+ 3-dose series) 1999 Influenza Immunization (#1) 2024 SARS-COV-2 Immunization (2023- season) 2024 Respiratory Syncytial Virus (RSV) Immunization (Adult) (1 - 1-dose 75+ series) 2055 Meningococcal Immunization (ACWY) Aged Out No longer eligible based on patient's age to complete this topic Pneumococcal Immunization Combined Aged Out No longer eligible based on patient's age to complete this topic Rotavirus Immunization Aged Out No lo nger eligible based on patient's age to complete this topic Insurance Care Teams Engineering Specialist Relationship Specialty Start Date End Date Anthony Orr MD [address] [place] [address] PCP - General Family Medicine 05/14/20
[2025-03-28 19:27] VITALS: BP 101/68; PULSE 96; RESP 16; TEMP 36.7; O2SAT 100
--- NOTE | 2025-03-28 20:57 | ECG_ITS ---
Test Date: 2025-03-28 21:17:29 Measurements Intervals [place] Rate: 64 P: 44 UT: 195 QRS: 80 QRSD: 93 T: 41 QT: 373 QTc: 387 Interpretive Statements SINUS RHYTHM BASELINE ARTIFACT- I, II, AVR NORMAL ECG No previous ECG available for comparison Electronically Signed On 03-29-2025 06:00:28 CDT by Edson Mckinnon D.O.
--- OUTSIDE RECORDS SUMMARY | 2025-03-28 21:00 | XMS_ITS | Clinical Summary ---
Author Organization [facility] Address [address] [place] [address] Care Team Providers Care Aeronautical Engineer Name Role Phone Anthony Orr MD Primary Care Provider [phone] Elio Painter MD Unavailable [phone] Allergies Active Allergy Reactions Criticality Noted Date [...] (01/20/2019): Added automatically from request for surgery [id number] Resolved Problems Problem Noted Date Diagnosed Date Resolved Date Alcohol abuse 05/05/2023 03/02/2025 Encounters Date Type Department Care Team Description 03/02/2025 8:30 AM CDT Office Visit [facility] Gastroenterology [address] [place] [address] Medical Office Building [address], [address] [place] [address] Elio Painter MD Alcohol-induced chronic pancreatitis (HCC) (Primary Dx); Fatigue, unspecified type; Screening for malignant neoplasm of colon 03/02/2025 7:20 AM CDT - 03/02/2025 11:59 PM CDT Hospital Encounter [facility] Imaging [address] [place] [address] Elio Painter MD History of pancreatitis Discharge Disposition: Discharge to home or self care 01/19/2025 Telephone [facility] Gastroenterology [facility] Advanced Medicine [facility] [place] [address] [place] [address] Alex Costello 01/19/2025 Orders Only [facility] Gastroenterology [address] [place] [address] [place] [address] Elio Painter MD History of pancreatitis (Primary Dx) 01/19/2025 Telephone [facility] Gastroenterology [address] [facility] Medicine [facility] [place] [address] [place] [address] Alex Costello 01/19/2025 Telephone [facility] Gastroenterology [address] [facility] Medicine [facility] [place] [address] [place] [address] Alex Costello imaging due from Last 3 [...] on file 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 Gender Identity Not on file Sexual Orientation Not on file 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 Not [...] this topic Medical Devices Implanted Type Area Front Office Representative Device Identifier Shelf Expiration Date Model / Serial / Lot Synthes 204.822 3.5mm 6mm 22mm 2.5mm Self Tap Small Hexagonal Socket Low Profile - S.0 - [id number] Implanted:Qty: 2 on 01/21/2019 by Jason Babb MD at [facility] Left: Humerus Synthes I 204.822 / .0 / 0 Synthes 212.116 3.5mm 2.9mm 38mm Self Tap Lock Stardrive Conical Head T15 Full - S.0 - [id number] Implanted:Qty: 1 on 01/21/2019 by Jason Babb MD at [facility] Left: Humerus Synthes I 212.116 / .0 / 0 Synthes 241.34 12mm [id number] .[id number] 4 Hole Collar 1/3 Tubular Plate Bone Stainless - S.0 - [id number] Implanted:Qty: 1 on 01/21/2019 by Jason Babb MD at [facility] Left: Humerus Synthes I 241.34 / .0 / 0 Synthes 204.824 3.5mm 6mm 24mm 2.5mm Self Tap Small Hexagonal Socket Low Profile - S.0 - [id number] Implanted:Qty: 1 on 01/21/2019 by Jason Babb MD at [facility] Left: Humerus Synthes I 204.824 / .0 / 0 Synthes 204.826 3.5mm 6mm 26mm 2.5mm Self Tap Small Hexagonal Socket Low Profile - S.0 - [id number] Implanted:Qty: 1 on 01/21/2019 by Jason Babb MD at [facility] Left: Humerus Synthes I 204.826 / .0 / 0 Synthes 223.661 Lcp Combi [id number] 16 Hole Limit Contact Taper End Plate Bone - S.0 - [id number] Implanted:Qty: 1 on 01/21/2019 by Jason Babb MD at [facility] Left: Humerus Synthes I 223.661 / .0 / 0 Synthes 204.828 3.5mm 6mm 28mm 2.5mm Self Tap Small Hexagonal Socket Low Profile - S.0 - [id number] Implanted:Qty: 2 on 01/21/2019 by Jason Babb MD at [facility] Left: Humerus Synthes I 204.828 / .0 / 0 Synthes 212.109 3.5mm 2.9mm 26mm Self Tap Lock Stardrive Conical Head T15 Full - S.0 - [id number] Implanted:Qty: 1 on 01/21/2019 by Jason Babb MD at [facility] Left: Humerus Synthes I 212.109 / .0 / 0 Synthes 212.110 3.5mm 2.9mm 28mm Self Tap Lock Stardrive Conical Head T15 Full - S.0 - [id number] Implanted:Qty: 1 on 01/21/2019 by Jason Babb MD at [facility] Left: Humerus Synthes I 212.110 / .0 / 0 Synthes 212.111 3.5mm 2.9mm 30mm Self Tap Lock Stardrive Conical Head T15 Full - S.0 - [id number] Implanted:Qty: 1 on 01/21/2019 by Jason Babb MD at [facility] Left: Humerus Synthes I 212.111 / .0 [...] 0.6 - 1.3 mg/dL POC Device Number [id number] SANG PINEDA POC Performer [id number] SANG PINEDA Blood 03/02/2025 7:26 AM CDT 03/02/2025 7:26 AM CDT Elio Painter MD LAB BLOOD ORDERABLES Final Result [facility] [address] [facility]. Department [place] [address] * eGFR (05/10/2023 10:03 AM CDT) eGFR 116 mL/min/1. 73 m2 [facility] Comment: Interpretive Data Reference Interval Normal [...] DO LAB BLOOD ORDERABLES Final R esult [facility] [address] Department [place] [address] * (ABNORMAL) Hemoglobin A1c (05/03/2023 5:41 AM CDT) Hgb A1C 11.6(H) 4.0 - 5.6 % [facility] Estimated Average Glucose 286 mg/dL [facility] Comment: The ADA recommends reporting an estimated Average Glucose (eAG) with all Hemoglobin A1c results using the equation derived from a study of 507 normal and diabetic adults. Minority populations were underrepresented and children were not included. (Diabetes Care 31:3779-9948, 2008). The eAG is not equivalent to a fasting glucose. Blood 05/03/2023 5:41 AM CDT 05/03/2023 6:05 AM CDT us Steve Christian MD LAB BLOOD ORDERABLES Final Result [facility] [address] Department [place] [address] * (ABNORMAL) Lipid panel (05/03/2023 12:47 AM CDT) Cholesterol 207(H) 30 - 199 mg/dL [facility] Comment: Interpretive Data Ages < or = [...] revised on 2018. Triglycerides 178(H) <=149 mg/dL [facility] Comment: Interpretive Data Ages < or = [...] revised on 2018. HDL 62 >=40 mg/dL [facility] Comment: Interpretive Data Ages < or = [...] on 2018. LDL, calculated 109 <=129 mg/dL [facility] Comment: Interpretive Data Ages < or = [...] revised on 2018. Non-HDL Cholesterol 145 mg/dL [facility] Comment: Interpretive Data Ages < or = [...] last revised on 2018. Chol/HDL ratio 3 [facility] Blood 05/03/2023 12:4 7 AM CDT 05/03/2023 12:55 AM CDT us Steve Christian MD LAB BLOOD ORDERABLES Final Result [facility] [address] Department [place] [address] from Last 3 Months or Most Recently Relevant to Health Maintenance Insurance [facility] WORKERS COMPENSATION GENERIC WORKERS COMPENSATION GENERIC Advance Directives For more information, please contact: [phone] * Full Code (Latest Code Status on File) Date Activated Date Inactivated Comments 05/03/2023 5:52 AM 05/05/2023 3:50 PM * Full Code Date Activated Date Inactivated Comments 01/20/2019 9:59 PM 01/22/2019 9:22 PM Care Teams Aeronautical Engineer Relationship Specialty Start Date End Date Anthony Orr MD PCP - General 01/20/19 Elio Painter MD [address] [place] [address] Consulting Physician Gastroenterology 05/05/23
--- OUTSIDE RECORDS SUMMARY | 2025-03-28 21:00 | XMS_ITS | Referral Summary ---
Author Organization [facility] Address [address] [place] [address] Care Team Providers Care Coffee Farmer Name Role Phone Anthony Orr MD Primary Care Provider Elio Painter MD Unavailable [phone] Encounters Date Type Department Care Team Description 03/02/2025 8:30 AM CDT Office Visit [facility] [address] [place] [address] Medical Office Building [address], [address] [place] [address] Elio Painter MD Alcohol-induced chronic pancreatitis (HCC) (Primary Dx); Fatigue, unspecified type; Screening for malignant neoplasm of colon 03/02/2025 7:20 AM CDT - 03/02/2025 11:59 PM CDT Hospital Encounter [facility] [address] [place] [address] Elio Painter MD History of pancreatitis Discharge Disposition: Discharge to home or self care 01/19/2025 Telephone [facility] [address] [place] [address] [place] [address] Alex Costello 01/19/2025 Orders Only [facility] [address] [facility] [address] [place] [address] [place] [address] Elio Painter MD History of pancreatitis (Primary Dx) 01/19/2025 Telephone [facility] [address] [facility] [address] [place] [address] [place] [address] Alex Costello 01/19/2025 Telephone [facility] [address] [facility] [address] [place] [address] [place] [address] Alex Costello imaging due from Last 3 [...] (01/20/2019): Added automatically from request for surgery [id number] Resolved Problems Problem Noted Date Diagnosed Date [...] on file Legal Sex Male 12:18 AM WOOD BARKER Gender Identity Not on file Sexual Orientation Not on file 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 Not [...] on file Medical Devices Implanted Type Area Hod Carrier Device Identifier Shelf Expiration Date Model / Serial / Lot Synthes 204.822 3.5mm 6mm 22mm 2.5mm Self Tap Small Hexagonal Socket Low Profile - S.0 - [id number] Implanted:Qty: 2 on 01/21/2019 by Jason Babb MD at [facility] Left: Humerus Synthes I 204.822 / .0 / 0 Synthes 212.116 3.5mm 2.9mm 38mm Self Tap Lock Stardrive Conical Head T15 Full - S.0 - [id number] Implanted:Qty: 1 on 01/21/2019 by Jason Babb MD at [facility] Left: Humerus Synthes I 212.116 / .0 / 0 Synthes 241.34 12mm [id number] .5mm 4 Hole Collar 1/3 Tubular Plate Bone Stainless - S.0 - [id number] Implanted:Qty: 1 on 01/21/2019 by Jason Babb MD at [facility] Left: Humerus Synthes I 241.34 / .0 / 0 Synthes 204.824 3.5mm 6mm 24mm 2.5mm Self Tap Small Hexagonal Socket Low Profile - S.0 - [id number] Implanted:Qty: 1 on 01/21/2019 by Jason Babb MD at [facility] Left: Humerus Synthes I 204.824 / .0 / 0 Synthes 204.826 3.5mm 6mm 26mm 2.5mm Self Tap Small Hexagonal Socket Low Profile - S.0 - [id number] Implanted:Qty: 1 on 01/21/2019 by Jason Babb MD at [facility] Left: Humerus Synthes I 204.826 / .0 / 0 Synthes 223.661 Lcp Combi [id number] 16 Hole Limit Contact Taper End Plate Bone - S.0 - [id number] Implanted:Qty: 1 on 01/21/2019 by Jason Babb MD at [facility] Left: Humerus Synthes I 223.661 / .0 / 0 Synthes 204.828 3.5mm 6mm 28mm 2.5mm Self Tap Small Hexagonal Socket Low Profile - S.0 - [id number] Implanted:Qty: 2 on 01/21/2019 by Jason Babb MD at [facility] Left: Humerus Synthes I 204.828 / .0 / 0 Synthes 212.109 3.5mm 2.9mm 26mm Self Tap Lock Stardrive Conical Head T15 Full - S.0 - [id number] Implanted:Qty: 1 on 01/21/2019 by Jason Babb MD at [facility] Left: Humerus Synthes I 212.109 / .0 / 0 Synthes 212.110 3.5mm 2.9mm 28mm Self Tap Lock Stardrive Conical Head T15 Full - S.0 - [id number] Implanted:Qty: 1 on 01/21/2019 by Jason Babb MD at [facility] Left: Humerus Synthes I 212.110 / .0 / 0 Synthes 212.111 3.5mm 2.9mm 30mm Self Tap Lock Stardrive Conical Head T15 Full - S.0 - [id number] Implanted:Qty: 1 on 01/21/2019 by Jason Babb MD at [facility] Left: Humerus Synthes I 212.111 / .0 [...] 0.6 - 1.3 mg/dL POC Device Number [id number] [facility] POC Performer [id number] [facility] Blood 03/02/2025 7:26 AM CDT 03/02/2025 7:26 AM CDT Elio Painter MD LAB BLOOD ORDERABLES Final Result [facility] [address] [facility]. Department [place] [employer] [place] [place] [address] * eGFR (05/10/2023 10:03 AM CDT) eGFR 116 mL/min/1. 73 m2 [facility] Comment: Interpretive Data Reference Interval [...] ORDERABLES Final R esult Performing Organization Address [facility] Co de Phone Number [facility] [address] Department [employer] [address] * (ABNORMAL) Hemoglobin A1c (05/03/2023 5:41 AM CDT) Hgb A1C 11.6(H) 4.0 - 5.6 % [facility] Estimated Average Glucose 286 mg/dL [facility] Comment: The ADA recommends reporting an estimated Average Glucose (eAG) with all Hemoglobin A1c results using the equation derived from a study of 507 normal and diabetic adults. Minority populations were underrepresented and children were not included. (Diabetes Care 31:9095-0892, 2008). The eAG is not equivalent to a fasting glucose. Blood 05/03/2023 5:41 AM CDT 05/03/2023 6:05 AM CDT Steve Christian MD LAB BLOOD ORDERABLES Final Result Performing Organization Address [facility] Co de Phone Number [facility] [address] [place] [address] * (ABNORMAL) Lipid panel (05/03/2023 12:47 AM CDT) Cholesterol 207(H) 30 - 199 mg/dL [facility] Comment: Interpretive Data Ages < [...] revised on 2018. Triglycerides 178(H) <=149 mg/dL [facility] Comment: Interpretive Data Ages < [...] revised on 2018. HDL 62 >=40 mg/dL [facility] Comment: Interpretive Data Ages < [...] on 2018. LDL, calculated 109 <=129 mg/dL [facility] Comment: Interpretive Data Ages < [...] revised on 2018. Non-HDL Cholesterol 145 mg/dL [facility] Comment: Interpretive Data Ages < [...] revised on 2018. Chol/HDL ratio 3 [facility] Blood 05/03/2023 12:4 7 AM CDT 05/03/2023 12:55 AM CDT us Steve Christian MD LAB BLOOD ORDERABLES Final Result [facility] [address] Department [place] [address] from Last 3 Months or Most Recently Relevant to Health Maintenance Insurance [facility] WORKERS COMPENSATION GENERIC WORKERS COMPENSATION GENERIC Advance Directives For more information, please contact: [phone] * Full Code (Latest Code Status on File) Date Activated Date Inactivated Comments 05/03/2023 5:52 AM 05/05/2023 3:50 PM * Full Code Date Activated Date Inactivated Comments 01/20/2019 9:59 PM 01/22/2019 9:22 PM Care Teams Coffee Farmer Relationship Specialty Start Date End Date Anthony Orr MD PCP - General 01/20/19 Elio Painter MD [address] [place] [address] Consulting Physician Gastroenterology 05/05/23
--- OUTSIDE RECORDS SUMMARY | 2025-03-28 21:00 | XMS_ITS | Clinical Summary ---
Author Organization [facility] Address [address] [place] [address] Phone Care Team Providers Care Numerical Control Programmer Name Role Phone Anthony Orr MD Primary Care Provider [phone] Allergies No known active allergies Medications promethazine [...] to complete this topic Insurance Care Teams Numerical Control Programmer Relationship Specialty Start Date End Date Anthony Orr MD [address] [place] [address] PCP - General Family Medicine 05/14/20
--- NOTE | 2025-03-28 21:01 | ED_ITS ---
HPI - Syncope General Chief Complaint: Syncope Stated Complaint: PALPITATIONS/SYNCOPE EPISODE Time Seen by Provider: 03/28/25 20:51 History of Present Illness HPI narrative: Patient is a 45-year-old male who presents emergency department this evening complaining of a syncopal episode that occurred while he was to hang himself a Monjaro injection. Patient states that he was just placed on this medication for diabetes. Patient states that he was standing when this happened and he bel ieves he did hit his head on a metal cabinet. Denies any additional symptoms. There are no additional modifying, alleviating, or precipitating factors at this time.. Related Data Home Medications ?Medication ?Instructions ?Recorded ?Confirmed ?Last Taken ?Type lisinopril 20 1 tablet PO DAILY 11/19/21 11/19/21 Unknown History mg-hydrochlorothiazide 25 mg tablet sertraline 50 mg tablet 50 mg PO DAILY 11/19/21 03/28/25 Unknown History lisinopril 20 mg tablet 20 mg PO DAILY 03/28/25 03/28/25 03/28/25 History Allergies Allergy/AdvReac Type Severity Reaction Status Date / Time Wasp Allergy Mild Swelling Uncoded 03/28/25 19:33 of Lip/Tongue/Throat Review of Systems Review of Systems: All systems are reviewed and are negative unless stated otherwise in the HPI. [facility] Past Medical History Medical History Diabetes mellitus Patient denied prior history of diabetes but hemoglobin A1c was 7.2% back in 2019. Depression Essential hypertension Pancreatitis (~2018) Alcoholic pancreatitis Surgical History Surgical History Status post open reduction with internal fixation of fracture (~2018) Left humerus fracture Family History Family History Other Diabetes mellitus Other Hypertension Social History Social History Social History: He lives in [place] with his of 16 years. 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 They have 4 children who are healthy. He used to smoke cigarettes on occasion but never smoked on a regular basis. He does drink 2 or 3 mixed drinks 2 or 3 times a week. He denies any illicit substance use. Code status: Full code Surrogate decision maker: Smoking status: Never smoker Second hand tobacco smoke exposure: No Alcohol intake: current Drinks per week: 8 Substance use: never Substance use type: does not use Spiritual care concerns: No Exam Narrative: General: Alert, awake, afebrile, in no acute distress. HEENT: PERRL, no rhinorrhea, no post nasal drip, oropharynx clear. Neck: Trachea midline, no JVD, no lymphadenopathy. Cardiovascular: Regular rate and rhythm, no murmurs, rubs or gallops, no peripheral edema. Respiratory: Clear to auscultation bilaterally, no tachypnea, no wheezing, no rhonchi, no rubs, no respiratory distress. Abdomen: Soft, nontender, nondistended, no rebound, no guarding, no peritoneal signs. Musculoskeletal: No joint swelling or deformity, normal muscle tone. Skin: No rashes or petechia, no signs of infection. Psychiatric: Alert and oriented, normal behavior and judgment for situation. Neurological: Alert and oriented to person, place, and time. Follows all commands. No focal deficits, speech is clear and fluent. Course Vital Signs Vital signs: Vital Signs Temperature 98.0 F 03/28/25 19:27 Pulse Rate 96 03/28/25 19:27 Respiratory Rate 16 03/28/25 19:27 Blood Pressure 101/68 03/28/25 19:27 Pulse Oximetry 100 03/28/25 19:27 Oxygen Delivery Room Air 03/28/25 19:27 Temperature 98.0 F 03/28/25 19:27 Pulse Rate 71 03/28/25 21:16 Respiratory Rate 16 03/28/25 21:16 Blood Pressure 95/63 L 03/28/25 21:16 Pulse Oximetry 98 03/28/25 21:16 Oxygen Delivery Room Air 03/28/25 21:16 MDM - Syncope MDM Narrative Medical decision making narrative: The patient was evaluated by myself in the emergency department. History is obtained from patient who is an independent historian and physical exam was performed. External medical records were reviewed at this time. EKG was obtained which revealed sinus rhythm rate of 64 beats per minute. No ST changes, T wave inversions or evidence of acute ischemia. EKG was independently interpreted by me and is currently pending official cardiology read. Imaging studies obtained included CT brain and cervical spine without IV contrast which was independently interpreted by me revealing: IMPRESSION: No acute fracture or traumatic malalignment in the cervical spine. No acute intracranial process Differential diagnosis considerations include vasovagal syncope, arrhythmia, dehydration/orthostatic hypotension. Comorbidities impacting this visit include none. I have evaluated and discussed social determinants of health with the patient that could potentially impact subsequent diagnosis and treatment plans. On repeat assessment of the patient, reevaluation revealed that the patient is doing well and is in no acute distress. Patient symptoms have improved since he arrived to our emergency department. Repeat vital signs were all reviewed and noted to be stable. Differential diagnosis and treatment plan were discussed with the patient at bedside. Patient agrees with discussion and after shared medical decision making agrees with discharge. All questions were answered to the patient's satisfaction. Patient will follow up with his PCP in 3-5 days. Patient was provided with strict return precautions and instructed to return to the emergency department if any new or worsening symptoms develop. The patient was discharged in stable condition. Lab Data Labs: Lab Results 03/28/25 Range/Units 21:19 POC Capillary Glucose 193 H (65-105) mg/dl Discharge Plan Discharge Clinical Impression: Vasovagal syncope Patient Disposition: Home Condition: Improved Instructions: Antibiotic Form, Syncope (DC) Additional Instructions: Please follow-up with the family doctor within the next 3-5 days. Return emergency department if any new or worsening symptoms develop. Patient Language: Puerto Rican Prescriptions: No Action lisinopril-hydrochlorothiazide 20-25 mg tablet 1 tablet PO DAILY sertraline 50 mg tablet 50 mg PO DAILY Lantus U-100 Insulin 100 unit/mL Solution 15 units subcut DAILY Qty: 10 0RF metformin 500 mg tablet 500 mg PO BIDWMEAL Qty: 60 0RF (DME) FreeStyle Aleksandr 14 Day Bolton Misc See Rx Instructions .Route Qty: 1 0RF Rx Instructions: As directed (DME) lancets-blood glucose strips 30 gauge combo pack See Rx Instructions .Route Qty: 50 0RF Rx Instructions: As directed (DME) pen needle, diabetic [AboutTime Pen Needle] 30 gauge x 5/16 needle See Rx Instructions .Route Qty: 100 0RF Rx Instructions: As directed alcohol swabs [Alcohol Pads] Pads, Medicated 1 pad topical DAILY@0800 Qty: 100 0RF lisinopril 20 mg tablet 20 mg PO DAILY Follow-up/Referrals: Anthony Orr MD [Primary Care Provider] - 3 Days Time of Disposition: 21:20
[2025-03-28 21:16] VITALS: BP 95/63; PULSE 71; RESP 16; O2SAT 100; O2SAT 98
[2025-03-28 21:25] LABS: Glucose Point of Care 193 mg/dl (65-105)
[2025-03-28 21:47] VITALS: BP 102/77; PULSE 62; RESP 18; O2SAT 98
== END 2025-03-28 21:48 | disposition home or self-care (01) ==
PROVIDERS: Emergency Provider Emergency Medicine; PCP Family Medicine
DX: R55 Syncope and collapse (principal); E11.9 Type 2 diabetes mellitus without complications; I10 Essential (primary) hypertension
CPT/HCPCS: 70450; 72125; 82948; 93005; 99284